=== PATIENT | male | born 1950 | race Caucasian/White ===

== ENCOUNTER 2017-01-14 15:37 | Inpatient (IN) | payer MEDICARE ==
[2017-01-14] MEDS ORDERED: SODIUM CHLORIDE 0.9% 1000ML 1,000 ML IVS ONE ×2 (16:01→18:00)
[2017-01-14] MEDS ORDERED: INSULIN, REG.(HUMAN) 250 UNITS in SODIUM CHL 0.9% 250ML (AVIVA) 247.5 ML IVPB SCH ×4 (16:43→19:00)
--- NOTE | 2017-01-14 16:52 | ED.PDOC ---
History of Present Illness - General Chief Complaint: Diabetic Complaint Stated Complaint: hyperglycemia Time Seen by Provider: 01/14/17 15:40 Source: patient, RN notes reviewed, Vital Signs reviewed, EMS Exam Limitations: no limitations - History of Present Illness Initial Comments: Patient is an insulin dependant diabetic who broke his insulin bottle 01/12/17 and has not had any insulin since. 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 HE finally tried to drive to [place] to grape picker his prescription but kept having to stop and sleep so he went to his uncles house and called EMS from there. He is c/o HOWE, body aches, nausea and just not feeling well. Blood sugar checked by EMS just read "high". He was started on NS bolus and given Zofram by EMS. Timing/Duration: getting worse - over past 2 days Improving Factors: nothing Worsening Factors: nothing Associated Symptoms: headaches, malaise, nausea/vomiting, weakness Allergies/Adverse Reactions: Allergies Penicillins Allergy (Verified 01/14/17 16:08) Home Medications: Ambulatory Orders Insulin Aspart [Novolog] 100 unit SC DAILY 01/14/17 Insulin Glargine [Lantus Solostar] 40 unit SC DAILY 01/14/17 Review of Systems - Review of Systems Constitutional: States: chills, malaise, weakness. Denies: diaphoresis, fever EENTM: States: no symptoms reported Respiratory: States: no symptoms reported. Denies: short of breath Cardiology: States: no symptoms reported. Denies: chest pain, palpitations, syncope Gastrointestinal/Abdominal: States: nausea. Denies: abdominal pain, vomiting Musculoskeletal: States: see HPI - generalized body aches Skin: States: no symptoms reported Neurological: States: headache Endocrine: States: increased thirst, increased urine All other Systems: No Change from Baseline Past Medical History (General) - Patient Medical History Hx Diabetes: Yes - Type 1 - Vaccination History Hx Influenza Vaccination: Yes Hx Pneumococcal Vaccination: Yes - Social History Hx Tobacco Use: No Hx Alcohol Use: No Hx Substance Use: No Hx Substance Use Treatment: No Hx Depression: No - Activities of Daily Living Hospice Agency (if applicable):: None - Female History Patient is a Female of Child Bearing Age (10 -59 yrs old): No Patient : No Family Medical History - Family History Mother Family History: Unknown Physical Exam - Physical Exam General Appearance: Alert, Comfortable, Ill Appearing, Well Developed, Well Groomed Ears, Nose, Throat: other - dry mucous membranes Neck: non-tender, full range of motion, supple, normal inspection Respiratory: lungs clear, normal breath sounds, no respiratory distress, no accessory muscle use Cardiovascular/Chest: regular rate, rhythm, no edema, no gallop, no JVD, no murmur Gastrointestinal/Abdominal: normal bowel sounds, non tender, soft, no organomegaly, no pulsatile mass Extremity: normal range of motion, non-tender, normal inspection, no pedal edema Neurologic: no motor/sensory deficits, alert, normal mood/affect, oriented x 3 Skin Exam: normal color, warm/dry Progress - Progress Progress: 01/14/17 16:54 Started on NS bolus and insulin drip - Results/Orders Results/Orders: Laboratory Tests 01/14/17 01/14/17 01/14/17 15:40 15:40 16:03 WBC 14.0 H RBC 4.10 L Hgb 11.9 L Hct 36.8 L MCV 89.9 MCH 29.0 MCHC 32.4 L RDW 13.3 Plt Count 213 MPV 10.5 H Absolute Neuts (auto) 12.50 H Absolute Lymphs (auto) 0.60 L Absolute Monos (auto) 0.80 Absolute Eos (auto) 0.00 Absolute Basos (auto) 0.00 Neutrophils % 89.9 H Lymphocytes % 3.9 L Monocytes % 6.0 Eosinophils % 0.0 L Basophils % 0.2 pCO2 30 L pO2 93 HCO3 13.5 ABG pH 7.280 L* ABG O2 Saturation 98.7 ABG Base Excess -11.9 ABG Deoxyhemoglobin 1.3 Oxyhemoglobin % 96.2 Carboxyhemoglobin % 0.8 Methemoglobin % Sat 1.6 H Calc Total Hemoglobin 10.5 L Sodium 124 L Potassium 5.4 H Chloride 84 L Carbon Dioxide 15 L Anion Gap 30.4 H BUN 64 H Creatinine 2.91 H BUN/Creatinine Ratio 22.0 H Random Glucose 690 H* Serum Osmolality 300.8 H Calcium 8.9 Total Bilirubin 1.4 H AST 30 ALT 27 Alkaline Phosphatase 100 Serum Total Protein 6.8 Albumin 3.9 Globulin 2.9 Albumin/Globulin Ratio 1.3 Urine Color Urine Appearance Urine pH Ur Specific Cavour Urine Protein Urine Glucose (UA) Urine Ketones Urine Blood Urine Nitrite Urine Bilirubin Urine Urobilinogen Ur Leukocyte Esterase Urine RBC Urine WBC Ur Epithelial Cells Amorphous Sediment Urine Bacteria Hyaline Casts Serum Ketones Moderate 01/14/17 16:48 WBC RBC Hgb Hct MCV MCH MCHC RDW Plt Count MPV Absolute Neuts (auto) Absolute Lymphs (auto) Absolute Monos (auto) Absolute Eos (auto) Absolute Basos (auto) Neutrophils % Lymphocytes % Monocytes % Eosinophils % Basophils % pCO2 pO2 HCO3 ABG pH ABG O2 Saturation ABG Base Excess ABG Deoxyhemoglobin Oxyhemoglobin % Carboxyhemoglobin % Methemoglobin % Sat Calc Total Hemoglobin Sodium Potassium Chloride Carbon Dioxide Anion Gap BUN Creatinine BUN/Creatinine Ratio Random Glucose Serum Osmolality Calcium Total Bilirubin AST ALT Alkaline Phosphatase Serum Total Protein Albumin Globulin Albumin/Globulin Ratio Urine Color Yellow Urine Appearance Clear Urine pH 5.0 Ur Specific Cavour 1.015 Urine Protein 30 Urine Glucose (UA) 500 H Urine Ketones 40 H Urine Blood Trace-lysed H Urine Nitrite Negative Urine Bilirubin Small H Urine Urobilinogen 0.2 Ur Leukocyte Esterase Negative Urine RBC 0-1 Urine WBC 0-1 Ur Epithelial Cells 0-1 Amorphous Sediment 2+ Urine Bacteria Rare Hyaline Casts 0-1 Serum Ketones Departure - Departure Clinical Impression: Diabetic ketoacidosis associated with diabetes mellitus due to underlying condition Qualifiers: Diabetes mellitus complication detail: without coma Qualified Code(s): E08.10 - Diabetes mellitus due to underlying condition with ketoacidosis without coma Time of Disposition: 17:39 Disposition: Admit Patient Condition: Poor Departure Forms: ED Discharge - Pt. Copy, Patient Portal Self Enrollment Home Medications: Ambulatory Orders Insulin Aspart [Novolog] 100 unit SC DAILY 01/14/17 Insulin Glargine [Lantus Solostar] 40 unit SC DAILY 01/14/17 Decision To Admit - Decistion To Admit Decision to Admit Reason: Admit from ER Decision to Admit Date: 01/14/17 Decision to Admit Time: 17:38
[2017-01-14] MEDS ORDERED: SODIUM CHL 0.9% 250ML (AVIVA) 250 ML IVPB ONE (17:30)
[2017-01-14] MEDS ORDERED: INSULIN, REG.(HUMAN) 100 U/ML VIAL ONE (17:31)
[2017-01-14] MEDS ORDERED: PREGABALIN 75 MG CAP ONE (17:57)
[2017-01-14] MEDS: PREGABALIN 75 MG CAP PO SCH ×2 (17:59→21:25)
[2017-01-14] MEDS ORDERED: MAGNESIUM HYDROXIDE 30 ML UD PO PRN (18:22)
[2017-01-14] MEDS ORDERED: ONDANSETRON INJ 4 MG/2 ML VIAL IV PRN (18:22)
[2017-01-14] MEDS ORDERED: SODIUM CHLORIDE 0.9% (FLUSH) 10 ML SYG IV PRN ×2 (18:22→18:35)
[2017-01-14] MEDS ORDERED: ACETAMINOPHEN 325 MG TAB PO PRN (18:22)
[2017-01-14] MEDS ORDERED: ALUM & MAG HYDROX-SIMETHICONE 30 ML UD PO PRN (18:22)
[2017-01-14] MEDS ORDERED: IV SET AND CAP CHANGE INJ INJ SCH ×2 (18:30→19:00)
--- NOTE | 2017-01-14 19:04 | HP ---
SUPERVISING PHYSICIAN: Nadeem Aguero MD CHIEF COMPLAINT: Hypoglycemia. HISTORY OF PRESENT ILLNESS: Mr. Naylor is a 66 year-old male patient that is insulin-dependent. He presented to the Emergency Department today via 911 after he started having some headaches, body aches and nausea and was not feeling well. 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 He was trying to drive to [facility] to clam picker his prescription today at [facility] when he started feeling poorly at which time he drove to his uncle's house in [place] and called 911. On arrival with EMS, his blood sugar was noted to be high on the meter. He was then started on a normal saline bolus, given Zofran and taken to the Emergency Department. Initial laboratory studies in the Emergency Department showed he had a blood sugar of 690 with potassium of 5.4, sodium 124, corrected for blood sugar of 690 was 133. His anion gap was 30.4, BUN 64, creatinine 2.91 with serum osmolality of 300. Blood gas analysis showed a pH of 7.28 with a PC02 of 30, P02 of 93, bicarb of 13.5 with saturation 98% with a base excess of negative 11.9. He also had serum ketones that showed he had a moderate amount of ketones present on admission. Given a clinical picture of elevated blood sugar with acidic pH and history of insulin-dependent diabetes. The patient was obviously in DKA state, therefore, Dr. Womack requested the patient be admitted to the hospital for treatment of DKA. He was initiated on DKA protocol in the Emergency Department with normal saline boluses and started on insulin drip. The patient is now to be admitted to the medical/surgical floor for continuation of treatment of DKA per protocol. He was admitted in stable condition. PAST MEDICAL HISTORY: 1. 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 PAST SURGICAL HISTORY: 1. Appendectomy. 2. Nephrectomy, left kidney for a cyst that was benign. HOME MEDICATIONS: 1. Lyrica 150 mg twice a day. 2. Novolin 100 units subcu daily. 3. Lantus SoloStar 40 units subcu daily. ALLERGIES: PENICILLINS FAMILY HISTORY: No significant family history. 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 He does have a past history of smoking but quit 20 years previously. He has a history of drinking but quit 9 years previous to this admission. He lives in [place]. He is and denies any illicit drug use. REVIEW OF SYSTEMS: CONSTITUTIONAL: He notes he has had some chills and malaise and general weakness but denies any diaphoresis or fevers. HEENT: Denies nasal congestion, visual disturbances. RESPIRATORY: He denies any shortness of breath or cough. CARDIOVASCULAR: Denies chest pains, palpitations or syncopal episodes. GASTROINTESTINAL: He has had some nausea but no actual emesis. Denies abdominal pain. MUSCULOSKELETAL: As noted in the history of present illness. Generalized body aches. NEUROLOGICAL: He does note he has had a headache but denies any syncopal episodes or other neurological deficits. ENDOCRINE: Notes he has had increased thirst and increased urination. PHYSICAL EXAMINATION: VITAL SIGNS: Temperature 98.3, pulse 126, blood pressure 112/69, respirations 20, saturation 100% on room air. Admission weight 79.9 kg. GENERAL: The patient is alert, appears to be comfortable, well-developed, well- groomed and does looks dehydrated and ill appearing but appears to be in no acute distress.l HEENT: Tympanic membranes clear bilaterally. Pharynx notable for dry mucous membranes. Oropharynx is pink. NECK: Supple, full range of motion with no jugular venous distention noted. CHEST: Lungs clear to auscultation bilaterally without rhonchi, rales, or wheezes. CARDIOVASCULAR: Regular rate and rhythm without appreciable murmurs, rubs, or gallops. ABDOMEN: Soft, non-tender, positive bowel sounds. EXTREMITIES: No cyanosis, clubbing, or edema. NEUROLOGIC: Cranial nerves II through XII are grossly intact. Facial features are symmetrical. Extraocular movements are within normal limits. There were no motor or sensory deficits noted. INTEGUMENT: Skin was pink, warm and dry. LABORATORY: CBC on admission showed white count of 14,000 with hemoglobin of 11.9, hematocrit 36.8, platelet count 213,000. Differential showed a left shift. Blood gas analysis showed a pH of 7.28 with PC02 of 30, P02 of 93, bicarb 13.5, base excess 11.9. Chemistries initially showed sodium 124 corrected for a glucose of 690 to 133. Potassium initially at 5.4. Anion gap was 30.4 with a carbon dioxide of 15. Creatinine 2.91. Initial BUN 64, calcium 8.9, phosphorus 5.5, magnesium 3.5, bilirubin slightly elevated to 1.4. Alkaline phosphatase, AST and ALT within normal limits. Serum osmolality 300. Urinalysis showed 500 glucose, 40 ketones, trace blood with a small amount of bilirubin, otherwise microscopic showed to be within normal limits. Serum ketones were moderate. MICROBIOLOGY/RADIOLOGY: There were no specimens or radiographic reports for review. ASSESSMENT: 1. Acute diabetic ketoacidosis secondary to lack of insulin administration with patient being alert and oriented and stable on admission. 2. Insulin-dependent diabetes mellitus diagnosed in 1998 status post left nephrectomy complications. 3. Severe dehydration secondary to a DKA state. 4. Leukocytosis likely secondary to hemoconcentration and severe dehydration secondary to DKA. PLAN: The patient will be admitted from the Emergency Room for continuation of treatment for DKA per protocol. He was started on insulin drip initially in the Emergency Department and given 2 boluses of saline prior to admission to the medical/surgical floor. We will continue with the saline for at least an additional total of 2 more for a total of 4 with close monitoring of his urine output. We will titrate insulin as per protocol and continue to check every 4 hours BMP as well as acute 1-hour fingersticks. Once stable and the patient shows to have resolution of his DKA which should be evidenced by normalization of his anion gap and stabilization of his blood sugars, will continue with insulin drip and place the patient on D5 half normal saline with 30 of potassium until he can start oral intake and resume his home insulin regimen. Anticipate length of stay to be 1 to 2 days with possible discharge tomorrow once he shows to be clinically stable. Once discharged, the patient will need close clinical followup a well as he will need a prescription to obtain insulin here in [place] prior to continuing with his travels to his home in [place] to prevent reoccurrence of DKA. Until discharge, we will continue to monitor the patient closely and treat appropriately #[id number] [facility]
[2017-01-14] MEDS ORDERED: SODIUM CHLORIDE 0.9% 1000ML 1,000 ML IVS PRN (19:25)
[2017-01-14] MEDS ORDERED: SODIUM CHLORIDE 0.9% 1000ML 0 ML ONE (20:18)
[2017-01-14] MEDS ORDERED: KCL 20 MEQ/NS 1,000 ML IVS PRN (20:37)
[2017-01-14] MEDS ORDERED: KCL 20 MEQ/NS 1,000 ML IVS ONE (20:41)
[2017-01-14] MEDS ORDERED: NON-FORMULARY MEDICATION 1 EA MIS (Pregabalin [Lyrica] 150 MG) PO SCH (21:00)
[2017-01-14] MEDS ORDERED: KCL 30MEQ/D5 1/2NS 1,000 ML IVS ONE (22:57)
[2017-01-14] MEDS: KCL 30MEQ/D5 1/2NS 1,000 ML IVS PRN (23:06)
[2017-01-15] MEDS ORDERED: HYDROcodone 5MG/APAP 325MG 1 EA TAB PO PRN (00:09)
[2017-01-15] MEDS ORDERED: KCL 30MEQ/D5 1/2NS 1,000 ML IVS ONE (02:22)
[2017-01-15] MEDS: KCL 30MEQ/D5 1/2NS 1,000 ML IVS PRN (02:56)
[2017-01-15] MEDS ORDERED: OMEPRAZOLE CAP 20 MG CAP PO SCH (06:30)
[2017-01-15] MEDS ORDERED: KCL 20MEQ/0.45% NS 1,000 ML IVS ONE (07:12)
[2017-01-15] MEDS ORDERED: KCL 20MEQ/0.45% NS 1,000 ML IVS PRN (07:15)
[2017-01-15] MEDS ORDERED: INSULIN DETEMIR 100 UNITS/ML PEN SUBCU ONE (08:36)
[2017-01-15] MEDS: PREGABALIN 75 MG CAP PO SCH (08:36)
[2017-01-15] MEDS ORDERED: INSULIN DETEMIR 100 UNITS/ML PEN SUBCU SCH (09:00)
[2017-01-15] MEDS ORDERED: DEXTROSE 50% 25 GM/50 ML SYG IV PRN (09:16)
[2017-01-15] MEDS ORDERED: GLUCAGON INJ 1 MG VIAL SUBCU PRN (09:16)
[2017-01-15 10:03] VITALS: BP 129/66; TEMP 97; O2SAT 100
[2017-01-15] MEDS ORDERED: INSULIN LISPRO 100 UNITS/ML PEN SUBCU ONE (12:45)
[2017-01-15] MEDS ORDERED: INSULIN, REG.(HUMAN) 100 U/ML VIAL ONE (12:52)
[2017-01-15] MEDS ORDERED: INSULIN LISPRO 100 UNITS/ML PEN SUBCU SCH ×2 (16:30)
--- NOTE | 2017-01-21 15:56 | DS ---
SUPERVISING PHYSICIAN: Nadeem Aguero MD DISCHARGE DIAGNOSIS: 1. Acute diabetic ketoacidosis secondary to failure to administer insulin with patient having been alert and oriented and stable on admission, showing good resolution after initiation of DKA protocol prior to discharge. 2. Insulin-dependent diabetes mellitus diagnosed in 1998 status post left nephrectomy complications. 3. Severe dehydration secondary to a DKA state, resolved after initiation of DKA protocol. 4. Leukocytosis secondary to hemoconcentration and severe dehydration from DKA showing good resolution after treatment on DKA protocol. HISTORY OF PRESENT ILLNESS: Mr. Naylor is a 66 year-old male patient that is insulin-dependent. He presented to the Emergency Department on the date of admission on 01/14/17 via 911 after he started having some headaches, body aches and nausea and was not feeling well. 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 He was trying to drive to [facility] on the date of admission to chicken picker his prescription at [facility] when he started feeling poorly at which time he drove to his uncle's house in [place] and called 911. On arrival with EMS, his blood sugar was noted to be high on the meter. He was then started on a normal saline bolus, given Zofran and taken to the Emergency Department. His initial laboratory studies in the Emergency Department showed he had a blood sugar of 690 with potassium of 5.4, sodium 124, corrected glucose was 690, sodium was 124 but corrected for blood sugar 690 was 133. Initial anion gap was 30.4, BUN 64, creatinine 2.91 with serum osmolality of 300. Blood gas analysis showed a pH of 7.28 with a PC02 of 30, P02 of 93, bicarb of 13.5 with saturation 98% on room air with a base excess of negative 11.9. He had serum ketones that showed to be moderate amount present on admission. Given a clinical picture of elevated blood sugar with acidic pH and history of insulin- dependent diabetes, the patient was obviously in DKA state, therefore, Dr. Womack requested the patient be admitted to the hospital for treatment of DKA. He was initiated on DKA protocol in the Emergency Department with normal saline boluses and started on insulin drip. The patient was then admitted to the medical/surgical floor for continuation of treatment of DKA per protocol. He was admitted in stable condition. LABORATORY: CBC on admission did show a leukocytosis of 14 with hemoglobin 11.9 , hematocrit 32.8, platelet count 213,000. Differential did show a left shift. After initiation of DKA protocol and IV fluids, his white count normalized at 7.3, hemoglobin 10.4, hematocrit 30.4, platelet count 137,000, differential showed to be normalized. Blood gas analysis on admission showed a pH of 7.28, PC02 of 30, P02 of 93, bicarb 13.5, base excess of 1.9, saturation 98% on room air. Initial chemistries on admission showed sodium 124 with glucose of 69 and serum osmolality of 300, potassium 5.4, sodium corrected to 133, anion gap 30.4 , BUN 53, creatinine 2.91, liver functions showed just a slightly elevated bilirubin of 1.4, otherwise within normal limits. Phosphorous was elevated at 5.5, magnesium was normal at 2.4. After initiation of treatment with DKA protocol and resolution of DKA state prior to discharge, the patient showed a sodium of 133, potassium 4.8, BUN decreased to 40. Creatinine was down to 1.7, serum osmolality 283, calcium 8.3 with a normal anion gap of 11.8. Glucose 195. Urinalysis showed on admission 500 glucose, 40 of ketones, trace blood, small amount of bilirubin. Microscopic within normal limits. He did have 3 sets of ketones initially on admission which showed moderate, on 01/15 repeat showed a small amount. MICROBIOLOGY: No specimens were submitted. RADIOLOGY: No radiographic studies were completed. HOSPITAL COURSE: Mr. Naylor as noted in the history of present illness, was admitted in DKA state. On 01/14/27 he was initiated on aggressive DKA protocol , given fluids, insulin drip and showed good clinical resolution at which time he was transitioned to subcu insulin and his long acting insulin of Levemir substituted for Lantus as the pharmacy does not carry Lantus. The patient was able to transition to oral diet and was having no complications and was showing good clinical improvement with his DKA having resolved and normalized and having good output in regards to his urine. Therefore, it was felt that he was able to be discharged in stable condition to continue with treatment plan resuming his regular diabetic regimen. PLAN: Mr. Naylor was discharged on 01/15/17 with instructions to have close clinical followup with his primary care physician and pv installer tech in [facility]. Those names and office numbers were not available at discharge. The patient was told to make his appointments as soon as he could once discharged. He was told to resume his home medications, encouraged to continue with fluids to prevent dehydration and once again, encouraged to always carry insulin with him and make arrangements to replace his insulin if it is broke to prevent further DKA state. He is to return to the hospital should he have any return of symptoms. At discharge he was given prescriptions for: 1. NovoLog per sliding scale as per normal administration of 100 units subcutaneous daily. 2. Lantus 40 units daily. 3. Humalog pen for slightly scale. 4. Samples from clinic of NovoLog and Lantus. DISCHARGE DIET: 1800 ADA diet as tolerated. ACTIVITY: Increase as tolerated. CONDITION ON DISCHARGE: Stable and improved. #[id number] [id number]
== END 2017-01-15 15:40 | disposition home or self-care (01) | DRG 639 ==
LOC: ER 15:37 → MS 19:03 → UNDOADMOB 19:03 → OBSVTOIN 19:03
PROVIDERS: ADMIT Nurse Practitioner Family; ATTEND Nurse Practitioner Family
DX: E13.10 Other specified diabetes mellitus with ketoacidosis without coma (principal); Z79.4 Long term (current) use of insulin; Z90.5 Acquired absence of kidney; Z79.899 Other long term (current) drug therapy; Z88.0 Allergy status to penicillin; E86.0 Dehydration; T38.3X6A Underdosing of insulin and oral hypoglycemic [antidiabetic] drugs, initial encounter; Y92.9 Unspecified place or not applicable